=== PATIENT | female | born 1950 | race American Indian/Alaskan Native ===

== ENCOUNTER 2019-02-22 13:37 | Outpatient (CLI) | payer MEDICARE ==
[2019-02-22 14:10] LABS: Hematocrit 41.4 % (30.3-42.9); Hemoglobin 13.9 gm/dl (10.1-14.3)
[2019-02-22 14:45] LABS: Erythrocyte Sedimentation Rate 18 mm/Hr (0-20)
[2019-02-22 14:46] LABS: Mean Corpuscular HGB Conc 34 % (30-34); Mean Corpuscular Volume 88 fl (79-97); Platelet Count 234 K/mm3 (140-440); Red Cell Distribution Width 13.5 % (13.2-15.2)
[2019-02-22 15:00] LABS: Alanine Aminotransferase 33 units/L (7-56); Albumin 4.4 g/dL (3.9-5); BUN/Creatinine Ratio 13; Blood Urea Nitrogen 12 mg/dL (7-17); Calcium 9.6 mg/dL (8.4-10.2); Hemolysis Index 2
[2019-02-27 13:26] LABS: HIV-1 Antibody Differentiation SEE SCANNED RESULT; HIV-2 Antibody Differentiation SEE SCANNED RESULT
[2019-02-28 07:34] LABS: Vitamin D, 25-OH, D2 <4 ng/mL
[2019-02-28 12:37] LABS: ANA Screen, IFA Negative (Negative)
== END 2019-02-22 13:38 | disposition home or self-care (01) ==
LOC: LAB 13:37
PROVIDERS: ATTEND Specialist
DX: G95.9 Disease of spinal cord, unspecified (principal)
CPT/HCPCS: 36415; 80053; 82306; 82607; 83921; 85027; 85652; 86038; 86225; 86592; 86618; 86689